=== PATIENT | female | born 1950 | race Caucasian/White ===

== ENCOUNTER 2023-02-24 14:25 | Outpatient (CLI) | payer MEDICARE, SELFPAY | END 2023-02-24 14:26 | disposition home or self-care (01) | LOC: LKVREF 14:26 | PROVIDERS: PCP Family Medicine; Visit Provider Emergency Medicine | DX: H53.8 Other visual disturbances (principal); E04.1 Nontoxic single thyroid nodule; E03.9 Hypothyroidism, unspecified; E78.5 Hyperlipidemia, unspecified; D69.6 Thrombocytopenia, unspecified | CPT/HCPCS: 80048 ==

== ENCOUNTER 2023-02-26 09:45 | Outpatient (CLI) | payer MEDICARE, SELFPAY | END 2023-02-26 09:46 | disposition home or self-care (01) | LOC: NFLDREF 14:30 | PROVIDERS: PCP Family Medicine; Referring Provider Family Medicine; Visit Provider Emergency Medicine | DX: E87.5 Hyperkalemia (principal); D69.6 Thrombocytopenia, unspecified | CPT/HCPCS: 84132 ==

== ENCOUNTER 2023-04-21 09:07 | Outpatient (CLI) | payer MEDICARE, SELFPAY | END 2023-04-21 09:08 | disposition home or self-care (01) | PROVIDERS: PCP Family Medicine; Visit Provider Emergency Medicine | DX: Z00.00 Encounter for general adult medical examination without abnormal findings (principal); E04.1 Nontoxic single thyroid nodule; E78.5 Hyperlipidemia, unspecified; M85.9 Disorder of bone density and structure, unspecified; F41.9 Anxiety disorder, unspecified; F32.A Depression, unspecified | CPT/HCPCS: 80076; 82306; 82607 ==

== ENCOUNTER 2023-05-12 13:18 | Outpatient (CLI) | payer MEDICARE, SELFPAY ==
--- NOTE | 2023-05-12 14:00 | CRLHL7_ITS ---
For Patients: As a result of the Century Cures Act, medical imaging exams and procedure reports are released immediately into your electronic medical record. You may view this report before your referring provider. If you have questions, please contact your health care provider. BILATERAL SCREENING MAMMOGRAM WITH COMPUTER-AIDED DETECTION AND TOMOSYNTHESIS TECHNIQUE: CC and MLO views were obtained. These mammographic images have been obtained using full-field digital technique. These mammographic images were interpreted with the benefit of computer-aided detection. Breast Tomosynthesis was used in this interpretation. COMPARISON FILM: 07/25/21, 05/23/18, 12/18/15. FINDINGS: There are scattered areas of fibroglandular density IMPRESSION: There is no radiographic evidence for malignancy. ASSESSMENT: BI-RADS Category 1: Negative RECOMMENDATION: Routine screening mammogram in 1 year. A lay language report of this examination will be provided to the patient. Emmanuel Cornelius M.D. Diagnostic Radiologist [email or web address] RUBENS/Dictated by: Emmanuel Cornelius MD @ 05/13/2023 9:48:00 AM (Electronically Signed)
--- NOTE | 2023-05-12 15:00 | CRLHL7_ITS ---
For Patients: As a result of the Cures Act, medical imaging exams and procedure reports are released immediately into your electronic medical record. You may view this report before your referring provider. If you have questions, please contact your health care provider. INDICATION: NON TOXIC THYROID NODULE COMPARISON: 07/23/2021 TECHNIQUE: Mazariegos scale and color Doppler images were acquired of the thyroid gland. FINDINGS: Cystic nodule within the right thyroid lobe is present measuring 4 x 3 x 4 millimeters, previously measuring 2 x 3 x 5 millimeters. Heterogeneously hypoechoic nodule within the left thyroid lobe is present measuring 1.4 x 0.7 x 1.0 cm, previously measuring 0.7 x 0.9 x 1.1 cm. The right lobe measures 3.8 x 1.3 x 1.2 cm and the left lobe measures 4.1 x 1.3 x 1.4 cm in size. The isthmus measures 2 millimeters. The color Doppler images demonstrate normal vascularity. There is no evidence of cervical lymphadenopathy or parathyroid mass. IMPRESSION: 1.4 cm TR 4 nodule left thyroid lobe. Follow-up in 1 year recommended. Dictated by Emmanuel Cornelius MD @ 05/13/2023 10:29:48 AM (Electronically Signed)
== END 2023-05-12 13:19 | disposition home or self-care (01) ==
PROVIDERS: PCP Family Medicine; Visit Provider Emergency Medicine
DX: Z12.31 Encounter for screening mammogram for malignant neoplasm of breast (principal); E04.1 Nontoxic single thyroid nodule
CPT/HCPCS: 76536; 77063; 77067

== ENCOUNTER 2024-05-10 09:34 | Outpatient (CLI) | payer MEDICARE, SELFPAY ==
--- NOTE | 2024-05-10 11:45 | CRLHL7_ITS ---
For Patients: As a result of the Century Cures Act, medical imaging exams and procedure reports are released immediately into your electronic medical record. You may view this report before your referring provider. If you have questions, please contact your health care provider. INDICATION: Benign thyroid nodules COMPARISON: 05/12/2023 TECHNIQUE: Mazariegos scale and color Doppler images were acquired of the thyroid gland. FINDINGS: Isthmus measures 2.3 millimeters. Solid nodule upper pole left thyroid lobe measures 12 x 7 x 11 millimeters, previously measuring 14 x 7 x 10 millimeters. Cystic nodule within the right thyroid lobe measures 4 x 2 x 4 millimeters, previously measuring 4 x 3 x 4 millimeters. The right lobe measures 3.4 x 1.1 x 0.7 cm and the left lobe measures 4.3 x 1.3 x 1.0 cm in size. The color Doppler images demonstrate normal vascularity. There is no evidence of cervical lymphadenopathy or parathyroid mass. IMPRESSION: Similar left thyroid lobe nodule measuring 1.2 cm. Dictated by Emmanuel Cornelius MD @ 05/10/2024 12:03:23 PM (Electronically Signed)
== END 2024-05-10 09:35 | disposition home or self-care (01) ==
PROVIDERS: PCP Emergency Medicine; Visit Provider Emergency Medicine
DX: E04.1 Nontoxic single thyroid nodule (principal); Z86.2 Personal history of diseases of the blood and blood-forming organs and certain disorders involving the immune mechanism
CPT/HCPCS: 76536

== ENCOUNTER 2024-10-04 10:03 | Outpatient (CLI) | payer MEDICARE, SELFPAY ==
--- NOTE | 2024-10-04 13:00 | CRLHL7_ITS ---
For Patients: As a result of the Century Cures Act, medical imaging exams and procedure reports are released immediately into your electronic medical record. You may view this report before your referring provider. If you have questions, please contact your health care provider. INDICATION: Pulsatile tinnitus TECHNIQUE: TOF MRA of COW with 3D MIP provided. No comparisons. FINDINGS: Incidental note is made of origin of the posterior cerebral arteries which can be a normal developmental variant. The visualized first and second order intracranial vessels are unremarkable. Specifically, no suspicious narrowing or aneurysmal dilatation. IMPRESSION: Unremarkable MRA of the head as far as visualized. Dictated by Timi Samaniego MD @ 10/04/2024 5:58:08 PM (Electronically Signed)
== END 2024-10-04 10:04 | disposition home or self-care (01) ==
LOC: US 10:04
PROVIDERS: PCP Emergency Medicine; Visit Provider Otolaryngology
DX: H93.A9 Pulsatile tinnitus, unspecified ear (principal); I65.22 Occlusion and stenosis of left carotid artery
CPT/HCPCS: 70544; 93880